=== PATIENT | female | born 1970 | race Two or more races ===

== ENCOUNTER 2021-06-19 18:20 | Inpatient (IN) | payer OTHER ==
[2021-06-19 13:27] VITALS: BMI 42.0
[2021-06-22] MEDS ORDERED: PHENAZOPYRIDINE HCL 100 MG TABLET (FP) PO ONE ×3 (06:00→10:00)
[2021-06-22] MEDS ORDERED: PHENAZOPYRIDINE HCL 100 MG TABLET (FP) ONE (06:47)
[2021-06-22] MEDS ORDERED: ceFAZolin SODIUM 1 GM VIAL ONE ×3 (06:48→17:51)
[2021-06-22] MEDS ORDERED: GABAPENTIN 300 MG CAPSULE PO ONE (07:02)
[2021-06-22] MEDS ORDERED: BUPIVACAINE LIPOSOME/PF (EXPAREL) 266 MG/20 ML VIAL ONE (07:23)
[2021-06-22] MEDS ORDERED: BUPIVACAINE HCL/PF 0.5% (5MG/ML) 10 ML VIAL ONE (07:23)
[2021-06-22] MEDS ORDERED: MIDAZOLAM HCL 2 MG/2 ML SINGLE DOSE VIAL ONE ×2 (07:24)
[2021-06-22] MEDS ORDERED: ROCURONIUM BROMIDE 50 MG/5 ML SYRINGE ONE ×2 (07:35→08:49)
[2021-06-22] MEDS ORDERED: fentaNYL CITRATE 250 MCG/5 ML VIAL ONE (07:35)
[2021-06-22] MEDS ORDERED: PROPOFOL 20 ML ONE ×2 (07:35→10:10)
[2021-06-22] MEDS ORDERED: CEFAZOLIN 2 GM in DEXTROSE 5%-WATER - 100 ML IVPB ONE ×2 (08:00→10:00)
[2021-06-22] MEDS ORDERED: ACETAMINOPHEN 1000 MG/100 ML VIAL IVPB ONE ×2 (08:00→10:53)
[2021-06-22] MEDS ORDERED: ceFAZolin SODIUM 1 GM VIAL IVPB ONE (08:10)
[2021-06-22] MEDS ORDERED: KETOROLAC TROMETHAMINE 30 MG/1 ML VIAL ONE (08:25)
[2021-06-22] MEDS ORDERED: LIDOCAINE HCL/PF 2% SDV 5ML VIAL ONE (08:25)
[2021-06-22] MEDS ORDERED: DEXAMETHASONE SOD PHOSPHATE 4 MG/1 ML VIAL ONE (08:25)
[2021-06-22] MEDS ORDERED: TRANEXAMIC ACID 1000 MG/10 ML VIAL IVPUSH ONE (09:00)
[2021-06-22] MEDS ORDERED: ALBUTEROL SO4 HFA INHALER IH ONE (09:53)
[2021-06-22] MEDS ORDERED: GLYCOPYRROLATE 0.2 MG/1 ML VIAL ONE (09:57)
[2021-06-22] MEDS ORDERED: NEOSTIGMINE METHYLSULFATE 0.5 MG/ML - 10 ML MDV ONE (09:57)
[2021-06-22] MEDS ORDERED: ONDANSETRON 4 MG/2 ML VIAL IVPUSH PRN ×2 (10:26→10:53)
[2021-06-22] MEDS ORDERED: ACETAMINOPHEN 325 MG TABLET (FP) PO PRN (10:26)
[2021-06-22] MEDS ORDERED: BISACODYL 5 MG TABLET.DR (FP) PO PRN (10:26)
[2021-06-22] MEDS ORDERED: IBUPROFEN 800 MG/8 ML IJ IVPB PRN (10:26)
[2021-06-22] MEDS ORDERED: oxyCODONE HCL 5 MG TABLET PO PRN ×4 (10:26→10:53)
[2021-06-22] MEDS ORDERED: LACTATED RINGERS SOLUTION 1,000 ML/1,000 ML INFUS.BAG IV SCH (10:30)
[2021-06-22] MEDS ORDERED: RIZATRIPTAN BENZOATE 5 MG PO SCH (10:30)
[2021-06-22] MEDS: ACETAMINOPHEN 500 MG TABLET (FP) PO SCH ×4 (11:00→23:20)
[2021-06-22] MEDS ORDERED: LACTATED RINGERS SOLUTION 1,000 ML IV SCH (11:00)
[2021-06-22] MEDS ORDERED: KETOROLAC TROMETHAMINE 30 MG/1 ML VIAL IVPUSH SCH (11:00)
[2021-06-22] MEDS ORDERED: ACETAMINOPHEN INJECTION 100 ML IVPB ONE (12:23)
[2021-06-22] MEDS ORDERED: ACETAMINOPHEN 1000 MG/100 ML VIAL IVPB SCH (12:30)
[2021-06-22] MEDS: SIMETHICONE 80 MG TAB.CHEW (FP) PO PRN ×2 (15:06→21:49)
[2021-06-22] MEDS: KETOROLAC TROMETHAMINE 30 MG/1 ML VIAL IVPUSH SCH ×2 (15:56→21:48)
[2021-06-22] MEDS ORDERED: DEXTROSE 5%-WATER - 50 ML IVPB ONE (17:51)
[2021-06-22] MEDS: CEFAZOLIN 1 GM in DEXTROSE 5%-WATER - 1 GM/50 ML IVPB IVPB SCH (17:54)
[2021-06-22 17:56] LABS: HEMATOCRIT 35.7 % (32.4-45.2); HEMOGLOBIN 11.7 GM/dL (10.7-15.3); MCH 30.2 pg (25.7-33.7); MCHC 32.9 g/dl (32.0-36.0); MEAN CELL VOLUME 91.8 fl (80-96); MEAN PLT VOLUME 8.2 fl (7.5-11.1); PLATELET COUNT 196 10^3/uL (134-434); RBC 3.89 M/mm3 (3.60-5.2); RDW 12.8 % (11.6-15.6); WHITE BLOOD COUNT 13.8 K/mm3 (4.0-10.0)
[2021-06-22 18:18] LABS: BLOOD UREA NITROGEN 19.2 mg/dL (7-18); CALCIUM 9.2 mg/dL (8.5-10.1)
[2021-06-22 18:22] LABS: CREATININE 1.1 mg/dL (0.55-1.3)
[2021-06-22] MEDS: oxyCODONE HCL 10 MG SUSTAINED ACTING TABLET PO SCH (21:49)
[2021-06-22] MEDS: DOCUSATE SODIUM 100 MG CAPSULE (FP) PO PRN (21:49)
[2021-06-23] MEDS ORDERED: DEXTROSE 5%-WATER - 50 ML IVPB ONE ×2 (01:39→09:16)
[2021-06-23] MEDS ORDERED: ceFAZolin SODIUM 1 GM VIAL ONE ×2 (01:39→09:17)
[2021-06-23] MEDS: CEFAZOLIN 1 GM in DEXTROSE 5%-WATER - 1 GM/50 ML IVPB IVPB SCH ×2 (02:00→09:22)
[2021-06-23] MEDS ORDERED: GABAPENTIN 300 MG CAPSULE PO ONE (06:00)
[2021-06-23] MEDS: ACETAMINOPHEN 500 MG TABLET (FP) PO SCH ×4 (06:02→23:46)
[2021-06-23 08:27] LABS: HEMATOCRIT 30.9 % (32.4-45.2); HEMOGLOBIN 10.6 GM/dL (10.7-15.3); MCH 31.3 pg (25.7-33.7); MCHC 34.1 g/dl (32.0-36.0); MEAN CELL VOLUME 91.7 fl (80-96); MEAN PLT VOLUME 9.4 fl (7.5-11.1); PLATELET COUNT 187 10^3/uL (134-434); RBC 3.37 M/mm3 (3.60-5.2); RDW 12.5 % (11.6-15.6); WHITE BLOOD COUNT 9.7 K/mm3 (4.0-10.0)
[2021-06-23 08:53] LABS: CALCIUM 8.5 mg/dL (8.5-10.1)
[2021-06-23 08:57] LABS: CREATININE 0.8 mg/dL (0.55-1.3)
[2021-06-23] MEDS: oxyCODONE HCL 10 MG SUSTAINED ACTING TABLET PO SCH ×2 (09:20→21:51)
[2021-06-23] MEDS: ENOXAPARIN NA (PORCINE) 40 MG/0.4 ML DISP.SYRIN SQ SCH (09:21)
[2021-06-23] MEDS: HYDROCHLOROTHIAZIDE 12.5 MG CAPSULE (FP) PO SCH (09:21)
[2021-06-23] MEDS: LISINOPRIL 10 MG TABLET PO SCH (09:22)
[2021-06-23] MEDS: SIMETHICONE 80 MG TAB.CHEW (FP) PO PRN (17:11)
[2021-06-23] MEDS: DOCUSATE SODIUM 100 MG CAPSULE (FP) PO PRN (21:51)
[2021-06-24] MEDS ORDERED: diphenhydrAMINE HCL 25 MG CAPSULE (FP) PO PRN (01:49)
[2021-06-24] MEDS: ACETAMINOPHEN 500 MG TABLET (FP) PO SCH ×2 (06:07→11:24)
[2021-06-24] MEDS: ENOXAPARIN NA (PORCINE) 40 MG/0.4 ML DISP.SYRIN SQ SCH (10:01)
[2021-06-24] MEDS: oxyCODONE HCL 10 MG SUSTAINED ACTING TABLET PO SCH (10:01)
[2021-06-24] MEDS: LISINOPRIL 10 MG TABLET PO SCH (10:02)
[2021-06-24] MEDS: HYDROCHLOROTHIAZIDE 12.5 MG CAPSULE (FP) PO SCH (10:02)
[2021-06-24 10:37] VITALS: BP 112/60; PULSE 82; TEMP 98.2
== END 2021-06-24 12:20 | disposition home or self-care (01) | DRG 743 ==
LOC: J2C 06-22 04:28 → J3W 06-22 14:50
PROVIDERS: ADMIT Obstetrics & Gynecology; ATTEND Obstetrics & Gynecology
PROC: 0UB70ZZ Excision of Bilateral Fallopian Tubes, Open Approach (ICD-10-PCS; 2021-06-22)
PROC: 0UB10ZZ Excision of Left Ovary, Open Approach (ICD-10-PCS; 2021-06-22)
PROC: 0JNC0ZZ Release Pelvic Region Subcutaneous Tissue and Fascia, Open Approach (ICD-10-PCS; 2021-06-22)
PROC: 0UT90ZZ Resection of Uterus, Open Approach (ICD-10-PCS; principal; 2021-06-22 07:30)
DX: N72 Inflammatory disease of cervix uteri (principal); R10.2 Pelvic and perineal pain; D39.12 Neoplasm of uncertain behavior of left ovary; N73.6 Female pelvic peritoneal adhesions (postinfective); N70.91 Salpingitis, unspecified
CPT/HCPCS: 36415; 80048; 81025; 85027; 86850; 86900; 86901; 88302-TC; 88304-TC; 88307-TC; 94010; 94760; J0131